=== PATIENT | female | born 1995 | race Caucasian/White ===

== ENCOUNTER 2018-04-14 16:37 | Emergency (ER) | payer BC, SELFPAY ==
[2018-04-14 16:40] VITALS: BP 121/77; PULSE 110; RESP 22; TEMP 36.7; O2SAT 95; BMI 42.5
--- NOTE | 2018-04-14 17:18 | DI.RAD.S_ITS ---
PROCEDURE: XR CHEST 2V INDICATIONS: congested coughing since TECHNIQUE: 2 views of the chest were acquired. COMPARISON: None. FINDINGS: Surgical changes and devices: Vascular coil Lungs and pleura: Lungs are clear. No pleural effusions or pneumothorax. Mediastinum: Mediastinal contours are normal. Heart size is normal. Bones and chest wall: No suspicious bony abnormalities. Soft tissues appear unremarkable. IMPRESSION: No evidence acute pulmonary process. Dictated by: Tima Cristobal M.D. on 04/14/2018 at 18:04 Approved by: Tima Cristobal M.D. on 04/14/2018 at 18:05
--- NOTE | 2018-04-14 17:45 | ED.URI ---
HPI - URI/Sore Throat <DENNY Mcclendon - Last Filed: 04/14/18 22:32> General Chief Complaint: Upper Respiratory Symptoms Stated Complaint: sick,thinks she has a cold Time Seen by Provider: 04/14/18 17:42 Source: patient Mode of arrival: ambulatory Limitations: no limitations History of Present Illness HPI Narrative: 22-year-old female with history of connective tissue disorder and is a nonsmoker here for complaint having cough nasal congestion and sore throat over the past to 3 days. She has not had a fever although she reports to is having chills. She is tolerating p.o. intake. She does report having a history of exercise induced asthma. She has been using her albuterol inhaler to help with her symptoms. She reports that she has a brother that has had cold-like symptoms as well and another brother that is also had strep throat that live in the house with her. Related Data Home Medications Medication Instructions Recorded Confirmed acetaminophen 650 mg PO #0 tab 09/17/15 ibuprofen #0 09/17/15 Previous Rx's Medication Instructions Recorded tramadol 50 mg PO Q6HP PRN #30 tab 09/29/15 cephalexin 500 mg PO BID #20 cap 04/14/18 Allergies Allergy/AdvReac Type Severity Reaction Status Date / Time amoxicillin Allergy Verified 04/14/18 17:19 Review of Systems <DENNY Mcclendon - Last Filed: 04/14/18 22:32> Constitutional Denies chills, Denies fever(s), Denies lethargy and Denies weakness Eyes Denies change in vision, Denies eye discharge, Denies irritation and Denies loss of vision ENT Ears, Nose, Mouth, and Throat: Reports nasal congestion and Denies throat swelling Cardiovascular Denies chest pain, Denies irregular heart rhythm, Denies lightheadedness, Denies palpitations and Denies orthopnea Respiratory Reports cough and Denies wheezing Gastrointestinal Gastrointestinal: Denies abdominal pain, Denies change in bowel habits, Denies diarrhea, Denies nausea and Denies vomiting Genitourinary Denies hematuria, Denies flank pain, Denies urinary incontinence and Denies urinary urgency Musculoskeletal Denies back pain, Denies muscle weakness, Denies numbness and Denies tingling Integumentary/Breasts Denies pruritus, Denies erythema, Denies rash and Denies wounds Neurologic Denies confusion, Denies loss of vision, Denies numbness, Denies tingling and Denies weakness Psychiatric Denies anxiety, Denies confusion, Denies depression, Denies homicidal ideation and Denies suicidal ideation Endocrine Denies palpitations Hematologic/Lymphatic Denies easy bruising Allergic/Immunologic Denies urticaria, Denies throat swelling and Denies wheezing Exam <DENNY Mcclendon - Last Filed: 04/14/18 22:32> Initial Vital Signs Initial Vital Signs: Vital Signs Temperature 98.1 F 04/14/18 16:40 Pulse Rate 110 H 04/14/18 16:40 Respiratory Rate 22 04/14/18 16:40 Blood Pressure 121/77 04/14/18 16:40 Pulse Oximetry 95 04/14/18 16:40 Const General: cooperative and well developed Nutritional Appearance: well nourished Orientation: alert, awake, oriented x3 and not confused HENMT Mouth: oral mucosae normal and moist mucous membranes Throat: posterior oropharynx abnormal (Erythema) Eyes Conjunctivae: conjunctivae normal Sclera: sclerae normal Pupils: PERRL EOM: EOM intact bilaterally Resp Effort & Inspection: normal respiratory effort, able to speak in complete sentences, no respiratory distress and no use of accessory muscles Auscultation: clear to auscultation bilaterally, rales, no rhonchi and wheezes Cardio Rate: regular rate Rhythm: regular rhythm Heart Sounds: no click, no gallops, no murmurs and no rubs Pulses: normal peripheral pulses Skin General: no rashes or lesions noted, No jaundice and No petechiae Neuro General: alert, oriented x3, gait normal and no focal motor deficits Speech: speech normal <Robert Chapman DO - Last Filed: 04/15/18 04:50> Initial Vital Signs Initial Vital Signs: Vital Signs Temperature 98.1 F 04/14/18 16:40 Pulse Rate 110 H 04/14/18 16:40 Respiratory Rate 22 04/14/18 16:40 Blood Pressure 121/77 04/14/18 16:40 Pulse Oximetry 95 04/14/18 16:40 Course <DENNY Mcclendon Last Filed: 04/14/18 22:32> Orders Ordered: Discontinued Medications Albuterol (Ventolin) 2.5 mg INH NOW ONE Stop: 04/14/18 18:18 Last Admin: 04/14/18 18:15 Dose: 2.5 mg Albuterol/Ipratropium (Duoneb) 3 ml INH NOW ONE Stop: 04/14/18 18:04 Last Admin: 04/14/18 18:05 Dose: 3 ml Cephalexin HCl (Keflex) 500 mg PO NOW ONE Stop: 04/14/18 19:41 Last Admin: 04/14/18 19:44 Dose: 500 mg Vital Signs - 8 hr 04/14/18 16:40 04/14/18 18:00 04/14/18 18:18 Temperature 98.1 F Pulse Rate 110 H 105 H 118 H Respiratory Rate 22 18 18 Blood Pressure 121/77 Pulse Oximetry 95 97 98 04/14/18 19:47 Temperature 101.5 F H Pulse Rate 110 H Respiratory Rate 19 Blood Pressure 100/57 L Pulse Oximetry 99 <Robert Chapman DO - Last Filed: 04/15/18 04:50> Orders Ordered: Discontinued Medications Albuterol (Ventolin) 2.5 mg INH NOW ONE Stop: 04/14/18 18:18 Last Admin: 04/14/18 18:15 Dose: 2.5 mg Albuterol/Ipratropium (Duoneb) 3 ml INH NOW ONE Stop: 04/14/18 18:04 Last Admin: 04/14/18 18:05 Dose: 3 ml Cephalexin HCl (Keflex) 500 mg PO NOW ONE Stop: 04/14/18 19:41 Last Admin: 04/14/18 19:44 Dose: 500 mg Vital Signs - 8 hr 04/14/18 16:40 04/14/18 18:00 04/14/18 18:18 Temperature 98.1 F Pulse Rate 110 H 105 H 118 H Respiratory Rate 22 18 18 Blood Pressure 121/77 Pulse Oximetry 95 97 98 04/14/18 19:47 Temperature 101.5 F H Pulse Rate 110 H Respiratory Rate 19 Blood Pressure 100/57 L Pulse Oximetry 99 MDM - URI/Sore Throat <DENNY Mcclendon - Last Filed: 04/14/18 22:32> Lab Data Lab Results 04/14/18 Range/Units 17:15 Influenza A & B (PCR) Negative (Negative) Point of Care Testing Rapid Strep A Positive Imaging Data Chest x-ray: Radiologist's impression: [facility] [address] [place] [address] XRay Report Signed Patient: Valencia Chavez [facility]#: [id number] : 1995Acct:[id number] Age/Sex: 22 / FDate of Service: 04/14/18 Loc: ED Accession Number: [id number] Procedure: XR chest 2V Ordering Provider: Coty Elmore MD PROCEDURE: XR CHEST 2V INDICATIONS: congested coughing since TECHNIQUE: 2 views of the chest were acquired. COMPARISON: None. FINDINGS: Surgical changes and devices: Vascular coil Lungs and pleura: Lungs are clear. No pleural effusions or pneumothorax. Mediastinum: Mediastinal contours are normal. Heart size is normal. Bones and chest wall: No suspicious bony abnormalities. Soft tissues appear unremarkable. IMPRESSION: No evidence acute pulmonary process. Dictated by: Tima Cristobal M.D. on 04/14/2018 at 18:04 Approved by: Tima Cristobal M.D. on 04/14/2018 at 18:05 [facility] Narrative Medical decision making narrative: Chest x-ray was obtained was negative for any acute findings. She was given a DuoNeb treatment and albuterol nebulizer treatment here in the emergency room which helped her with her symptoms and also with wheezing. Influenza swab was obtained was negative. Strep test was obtained and was positive. Due to amoxicillin allergy she is placed on cephalexin. Plenty of fluids and rest. [id number] Tylenol or Motrin as needed for any discomfort. Saline irrigation nasal passages and hot showers to help with any congestion. Follow up with primary care provider. Return emergency room for worsening symptoms. <Robert Chapman DO - Last Filed: 04/15/18 04:50> Lab Data Lab Results 04/14/18 Range/Units 17:15 Influenza A & B (PCR) Negative (Negative) Point of Care Testing Rapid Strep A Positive Discharge Plan Departure Patient Disposition: Home Clinical Impression: Viral upper respiratory infection, Acute streptococcal pharyngitis Discharge Date/Time: 04/14/18 19:48 Interventions: ED Discharge Assessment Last Done: 04/14/18 19:47 Instructions: DI for Strep Throat Activity Restrictions/Additional Instructions: Chest x-ray was obtained was negative for signs of pneumonia. Influenza swab was obtained was also negative. Strep test was positive. Signs and symptoms presents as viral upper respiratory infection also with strep pharyngitis. Plenty of fluids and rest. [id number] Tylenol Motrin as needed for any discomfort. Albuterol inhaler as prescribed to help with any wheezing. Follow up with primary care provider later this week. You are placed on an antibiotic called cephalexin use as directed. For any worsening symptoms return to the emergency room. Replace your toothbrush Prescriptions: New cephalexin 500 mg capsule 500 mg PO BID Qty: 20 RF: 0 No Action ibuprofen 400 MG tablet Qty: 0 RF: 0 acetaminophen 325 MG tablet 650 mg PO Qty: 0 RF: 0 tramadol 50 MG tablet 50 mg PO Q6HP PRNQty: 30 RF: 0 Referrals: [facility] [Provider Group] <Robert Chapman DO - Last Filed: 04/15/18 04:50> Cosign ED Attending Emma Attestation: I was immediately available in the department for consultation. Documentation has been reviewed. I agree with assessment and plan.
[2018-04-14 17:48] LABS: Influenza A and B by PCR Rapid Negative (Negative)
[2018-04-14 18:00] VITALS: PULSE 105; RESP 18; O2SAT 97
[2018-04-14] MEDS: ALBUTEROL/IPRATROPIUM 3 ML AMPUL INH (18:05)
[2018-04-14] MEDS: ALBUTEROL 2.5 MG/3 ML NEB (ADULT) INH (18:15)
[2018-04-14 18:18] VITALS: PULSE 118; RESP 18; O2SAT 98
[2018-04-14] MEDS: cephALEXin 250 MG CAPSULE 500 MG PO (19:44)
[2018-04-14 19:47] VITALS: BP 100/57; PULSE 110; RESP 19; TEMP 38.6; O2SAT 99
== END 2018-04-14 19:48 | disposition home or self-care (01) ==
PROVIDERS: Emergency Medicine; Emergency Provider Nurse Practitioner Family
DX: J02.0 Streptococcal pharyngitis (principal)
CPT/HCPCS: 71046; 87400; 87880; 94640; 99282; 99284; J7613

== ENCOUNTER → 2020-01-09 14:13 | Outpatient (CLI) | payer OTHER, SELFPAY ==
--- NOTE | 2020-01-09 14:16 | DI.US.S_ITS ---
PROCEDURE: US OB <= 14 WEEKS FETUS INDICATIONS: Initial US for Dating and Viability please OUTSIDE/PRIOR DATING DATA: Last menstrual period (LMP): Not available. LMP-based estimated date of delivery (EFREN): Not available . First dating scan (date and location): 01/09/20 . Estimated date of delivery (EFREN) from first dating scan: 07/25/20 . TECHNIQUE: Real-time scanning was performed of the fetus and maternal pelvic organs, with image documentation. Endovaginal scanning was also performed to better visualize the fetus and maternal ovaries. COMPARISON: None. FINDINGS: Embryo: There is a 4.9 cm crown-rump length which correlates with a gestational age of 11 weeks 5 days, +/-5 days. cardiac activity is observed at 112 beats per minute. Maternal cervical length is 3.3 cm Maternal organs: Ovaries appear normal considering gestational status. Limited images through the kidneys demonstrate no hydronephrosis. IMPRESSION: 1st trimester gestation, 11 weeks 5 days gestational age, delivery date projected to be centered on 07/25/20, +/-5 days. Dictated by: Leon Galvan M.D. on 01/09/2020 at 16:15 Approved by: Leon Galvan M.D. on 01/09/2020 at 16:17
== END ==
LOC: US 14:15
PROVIDERS: PCP Family Medicine; Referring Provider Specialist; Visit Provider Specialist
DX: Z34.01 Encounter for supervision of normal first pregnancy, first trimester (principal); Z3A.11 11 weeks gestation of pregnancy
CPT/HCPCS: 76801

== ENCOUNTER → 2020-01-15 17:33 | Outpatient (CLI) | payer OTHER, SELFPAY ==
[2020-01-15 18:18] LABS: Add Manual Diff / Slide Review NO; Basophils Absolute Auto 0 /uL (0-100); Basophils Percent Auto 0.2 % (0-2); Eosinophils Absolute Auto 0 /uL (0-450); Eosinophils Percent Auto 0.4 % (2-4); Hematocrit 37.5 % (36-46); Hemoglobin 12.5 g/dL (12.0-16.0); Lymphocytes Absolute Auto 2600 /uL (1100-4500); Lymphocytes Percent Auto 26.9 % (25-40); Mean Corpuscular HGB Conc 33.2 % (30-36); Mean Corpuscular Hemoglobin 29.2 PG (26-34); Mean Corpuscular Volume 87.7 fL (80-100); Monocytes Absolute Auto 500 /uL (0-900); Monocytes Percent Auto 5.1 % (3-14); Neutrophils Absolute Auto 6500 /uL (1500-7000); Neutrophils Percent Auto 67.4 % (50-75); Platelet Count 225 X10^3/uL (150-400); Red Blood Cell Count 4.28 X10^6/uL (4.0-5.2); Red Cell Distribution Width 13.3 % (11.6-14.8); White Blood Cell Count 9.6 X10^3/uL (4.5-11.0)
[2020-01-15 18:37] LABS: Glucose 93 mg/dL (70-100)
[2020-01-15 18:40] LABS: Hemoglobin A1C% w Est Avg Glu 4.9 % (4.0-6.0)
[2020-01-15 19:08] LABS: Rubella Antibody IgG 0.5 IU/mL (>15)
[2020-01-15 19:11] LABS: Hepatitis B Surface Antigen NEGATIVE s/c (NEGATIVE)
[2020-01-15 19:27] LABS: HIV 1 & 2 Ab/Ag 4th Gen Combo NEGATIVE (NEGATIVE); Hep C Virus Ab w/Reflex Quant NEGATIVE s/c (NEGATIVE)
[2020-01-16 05:16] LABS: RPR Screen Non Reactive (Non Reactive)
[2020-01-16 07:36] LABS: Varicella IgG Antibody <135 index (Immune >165)
== END ==
PROVIDERS: PCP Family Medicine; Referring Provider Specialist; Visit Provider Specialist
DX: Z34.01 Encounter for supervision of normal first pregnancy, first trimester (principal)
CPT/HCPCS: 36415; 80055; 82947; 83036; 86787; 86803; 86850; 86900; 86901; 87389

== ENCOUNTER → 2020-03-12 15:25 | Outpatient (ROUT) | payer OTHER, SELFPAY | PROVIDERS: PCP Family Medicine; Visit Provider Specialist | DX: Z34.01 Encounter for supervision of normal first pregnancy, first trimester (principal) | CPT/HCPCS: 87086 ==

== ENCOUNTER → 2020-05-03 08:56 | Outpatient (CLI) | payer OTHER, MEDICAID, SELFPAY ==
[2020-05-03 11:04] LABS: GTT (PREG) 1 Hour PP 50gm Dose 108 mg/dL (76-139)
[2020-05-03 11:28] LABS: Appearance Urine UA CLOUDY; Bilirubin Urine UA NEGATIVE (NEGATIVE); Color Urine UA YELLOW; Glucose Urine UA TRACE g/dL (Negative); Ketones Urine UA NEGATIVE (NEGATIVE); Leukocyte Esterase Urine UA 1+ (NEGATIVE); Nitrite Urine UA NEGATIVE (Negative); Occult Blood Urine UA NEGATIVE (Negative); Protein Urine UA NEGATIVE (Negative); Specific Gravity Urine UA 1.015 (1.000-1.035); Urobilinogen Urine UA 0.2 E.U./dL (0.2)
[2020-05-03 11:29] LABS: Bacteria Urine None Seen; RBC Urine None Seen (0-5/HPF); pH Urine UA 7.5 (4.5-8.0)
[2020-05-03 11:37] LABS: Amorphous Sediment Urine 3+; Culture Indicated Urine Cult Not Indicated; Squamous Epithelial Cell Urine 5-10 /HPF (0-5/HPF); WBC Urine 1-5/HPF (0-5/HPF)
== END ==
PROVIDERS: PCP Family Medicine; Referring Provider Specialist; Visit Provider Specialist
DX: Z34.02 Encounter for supervision of normal first pregnancy, second trimester; Z3A.25 25 weeks gestation of pregnancy
CPT/HCPCS: 36415; 81003; 81015; 82950; 85014; 85018

== ENCOUNTER → 2020-07-08 15:37 | Outpatient (CLI) | payer OTHER, MEDICAID, SELFPAY ==
[2020-07-09 15:58] LABS: Strep Grp B PCR NEG for Grp B Strep
== END ==
PROVIDERS: PCP Family Medicine; Visit Provider Specialist
DX: Z34.03 Encounter for supervision of normal first pregnancy, third trimester (principal); Z3A.36 36 weeks gestation of pregnancy
CPT/HCPCS: 87653

== ENCOUNTER → 2020-07-29 11:40 | Outpatient (CLI) | payer OTHER, MEDICAID, SELFPAY ==
[2020-07-29 12:24] LABS: COVID19 -Nasal RAPID Negative (Negative)
== END ==
PROVIDERS: PCP Family Medicine; Visit Provider Specialist
DX: Z01.812 Encounter for preprocedural laboratory examination (principal); Z20.822 Contact with and (suspected) exposure to COVID-19
CPT/HCPCS: 87635; C9803

== ENCOUNTER 2020-07-30 05:35 | Inpatient (IN) | payer OTHER, MEDICAID, SELFPAY ==
[2020-07-30] MEDS: LACTATED RINGERS 1,000 ML 100 ML IV ×4 (07:15→17:07)
--- NOTE | 2020-07-30 07:26 | PM.OBHP.1 ---
OB HPI Date/Time Date of admission: 07/30/20 Date Patient Seen: 07/30/20 Time Patient Seen: 07:26 History of Present Condition Chief complaint: C Section : 1 Para: 0 Estimated Date of Delivery: 08/02/20 Estimated Gestational Age (weeks): 39 Narrative: Valencia Chavez is a 24 year old female History of Present care: good care, initiated at week # (11), number of visits (10) and pounds weight gain (-11) Dating criteria: LMP confirmed by 1st trimester US Ultrasounds: normal mid trimester US Obstetrical complications: none Medical complications: other (Alexandre Danlos) Preadmission Labs Blood type: O (+) positive -: Antibody screen: negative, GBS status: negative, HBsAG: negative, HIV: negative and RPR/VDLR: negative -: Chlamydia screen: not detected and Gonorrhea screen: not detected -: Rubella: not immune and Varicella: not immune HCAB: negative Quad screen: Normal 1 hr GTT: 108 Evaluation Evaluation Baseline heart rate: 140 Variability: Moderate (11-25) monitor accelerations: Present Monitor Decelerations: Absent Contraction Frequency (minutes): 8 Uterine Contraction Intensity: Mild Category of Tracing: Reactive Status: Category l PFSH Medical History (Updated 07/15/20 @ 11:37 by Levar Gudino MD) Accident at workplace (~2015) ADHD Allergies Anxiety (~2011) Asthma (~1999) Chicken pox (~2000) Depression (~2011) Alexandre-Danlos syndrome Fractures Headache Hearing loss Irregular menstrual cycle Lactose intolerance Left hand fracture Low muscle tone (~1995) Migraine Obesity Panic attacks (~2011) Toe fracture, left Surgical History (Updated 02/12/20 @ 21:38 by Leydi Cole) Anesthesia H/O wisdom tooth extraction (~08/2019) Hx of heart surgery (~12/1995) S/P biopsy S/P ear surgery S/P tonsillectomy Family History (Updated 02/12/20 @ 21:45 by Leydi Cole) Mother Diabetes mellitus Hyperlipidemia Asthma Father Diabetes mellitus Sleep apnea History of heart disease Hypertension Hyperlipidemia Grandmother Prediabetes Hypertension Grandfather Alcoholic Hypertension Grandmother Status post tracheostomy Cancer Diabetes mellitus History of heart disease Hyperlipidemia Mental health problem Depression Grandfather Accident Diabetes mellitus History of heart disease Hyperlipidemia Family/Other Cancer Sister Alexandre-Danlos syndrome Brother Alexandre-Danlos syndrome Sister Social anxiety disorder Alexandre-Danlos syndrome Sister Alexandre-Danlos syndrome Depression Family/Other Status post tracheostomy Brother Overweight Social History marital status: unmarried,single household members: family (Lives with Parent's and Sibling's) lives independently: No pets and animals: No education level: high school occupational status: employed (Works at [email or web address] in ) current occupational exposures/hazards: Yes special allyn needs: No Smoking Status: Former smoker (Quit in November 2019) Tobacco: How many years used: 2 second hand exposure: No alcohol intake: former (pre- : rare) substance use type: does not use Meds Home Medications and Allergies Home Medications Medication Instructions Recorded Confirmed Type albuterol sulfate 90 mcg/actuation 2 puff INHALATION Q6H PRN 01/14/20 07/22/20 History aerosol inhaler prenat.vits,gonzalo,mkn-ikbv-hkbtq 1 tab PO DAILY 01/14/20 07/22/20 History Allergies Allergy/AdvReac Type Severity Reaction Status Date / Time amoxicillin Allergy Mild Hives to Verified 05/27/20 10:04 arms : mild lactose AdvReac Mild GI Verified 05/27/20 10:04 discomfort Review of Systems Review of Systems Narrative: Patient denies headaches, scotomata, epigastric pain. No leakage of fluid. Good movement. No regular contractions ROS: Yes All systems reviewed with the patient and are negative except as otherwise documented Exam Vital Signs (past 8 hours): Blood pressure 107/58, pulse of 86, temperature 96.5? Narrative Exam Narrative: HEENT exam within normal limits. Lungs are clear to auscultation percussion. Heart is regular rate and rhythm no S3-S4 murmurs. Abdomen is gravid. Fetus is vertex. Extremities without edema and nontender. Assessment and Plan Assessment and Plan Assessment and Plan narrative: 39 and half week gestation patient admitted for primary section due to concerns from her Alexandre Danlos syndrome and pushing.
[2020-07-30 07:53] LABS: Add Manual Diff / Slide Review NO; Basophils Absolute Auto 100 /uL (0-100); Basophils Percent Auto 0.5 % (0-2); Eosinophils Absolute Auto 0 /uL (0-450); Eosinophils Percent Auto 0.2 % (2-4); Hematocrit 34.5 % (36-46); Hemoglobin 11.4 g/dL (12.0-16.0); Lymphocytes Absolute Auto 3300 /uL (1100-4500); Lymphocytes Percent Auto 28.6 % (25-40); Mean Corpuscular Hemoglobin 28.2 PG (26-34); Mean Corpuscular Volume 85.4 fL (80-100); Monocytes Absolute Auto 700 /uL (0-900); Monocytes Percent Auto 6.4 % (3-14); Neutrophils Absolute Auto 7400 /uL (1500-7000); Neutrophils Percent Auto 64.3 % (50-75); Platelet Count 235 X10^3/uL (150-400); Red Blood Cell Count 4.04 X10^6/uL (4.0-5.2); Red Cell Distribution Width 14.6 % (11.6-14.8); White Blood Cell Count 11.5 X10^3/uL (4.5-11.0)
[2020-07-30] MEDS: CEFAZOLIN 1 GM VIAL 2 GM IV (08:00)
--- NOTE | 2020-07-30 08:28 | SUR.OPER ---
Supine on Padded OR bed, head on pillow, safety belt at thigh, arms secured on padded arm boards at <90 degrees abduction. Bump under right buttock. Legs uncrossed with pillow under knees, gel pad to heels, tape over blanket to lower legs.
--- NOTE | 2020-07-30 08:34 | SUR.OPER ---
live male born at 0819
[2020-07-30 09:06] VITALS: BP 113/45; PULSE 83; RESP 16; TEMP 36.4; O2SAT 98
[2020-07-30 09:10] VITALS: BP 100/50; PULSE 83; RESP 9; O2SAT 100
--- NOTE | 2020-07-30 09:14 | P.OP_ITS ---
Operative Date/Time/Diagnoses Date of procedure: 07/30/20 Time of procedure: 09:14 Pre-op diagnosis: 39 weeks gestation with Alexandre Danlos syndrome for primary section Post-op diagnosis: same Procedure & Clinicians Procedure: primary low-transverse section Same procedure as scheduled: Yes Indications: term with Alexandre Danlos Syndrome Surgeon: Pippa Anne Enrollment Representative: Pina Lomeli Anesthesia Type: Spinal Operative Notes Closure Type: primary Specimen(s): cord blood Intraoperative meds administered: Ketorolac and Pitocin Applied: Catheter ( Mishra) Estimated Blood Loss (mL): 500 Blood products transfused: none Complications: none Baby 1: Infant Gender: Male Presentation: vertex Position: Right Occiput Transverse Placental Delivery Description: Expressed Cord Vessel Description: 3 Vessels score (1 min): 9 score (5 min): 9 weight: 8 lb 5 oz Narrative: The patient was brought to the operating room where she underwent a spinal for anesthesia. She was placed in a supine position with a left lateral tilt. A Mishra catheter was placed. Pulsatile stockings were placed and functional throughout the case. 2 g of Ancef were given IV prior to the incision. Warmi ng was in place. The patient was prepped and draped in usual sterile fashion. A low transverse incision was made with a scalpel and the incision was carried down to the fascial layer which was incised transversely with scissors. The health care legal assistant did her side of the incision. The midline attachments are superiorly and inferiorly. Some bleeding was controlled Bovie. The rectus muscles were in the midline and the peritoneal incision was made with no damage to internal structures. The peritoneum was incised and superiorly and inferiorly. The incision was stretched with the surgeon and health care legal assistant placing traction. Bladder blade was placed and a bladder flap was developed and the bladder held away from the lower uterine segment. An incision was made in the uterus with the scalpel and the incision was extended with stretching. The head was elevated out of the abdomen and with fundal pressure by the health care legal assistant the baby was delivered. The was bulb suctioned for clear fluid and handed off to the warmer. Cord blood was collected. The placenta delivered spontaneously with traction. The uterus was cleaned with clean laps. The uterine incision was closed in 2 layers of 0 chromic suture the first a running locking layer the second an imbricating layer. The health care legal assistant was helping to expose the incision. The bladder peritoneum was repaired with 2-0 Vicryl suture. The gutters were cleaned of any remaining fluids and ovaries and tubes were observed to be normal. Adequate hemostasis was noted. The perineum was closed with 2-0 Vicryl suture. The fascia layer was closed with 0 Vicryl suture with 2 stitches. The health care legal assistant repairing half the incision with helping to retract and expose the incision for the other half. The incision was irrigated and adequate hemostasis noted. The incision was closed with interrupted 3-0 Vicryl sutures and then a subcuticular stitch of 4-0 Vicryl suture. Steri- Strips were placed. The uterus was massaged to remove any clots. The patient went to recovery room in good condition. Counts of instruments and sponges were correct. Dr. Lomeli was present throughout the case to assist with retraction, fundal pressure to deliver the , and suturing half the fascia. Post-operative Condition: stable Disposition: other ( Center) Aftercare: routine postop
[2020-07-30 09:15] VITALS: BP 109/53; PULSE 73; RESP 7; O2SAT 100
[2020-07-30 09:20] VITALS: BP 107/49; PULSE 76; RESP 8; O2SAT 100
[2020-07-30 09:25] VITALS: BP 105/41; PULSE 75; RESP 10; O2SAT 100
[2020-07-30 09:55] VITALS: BP 107/58
[2020-07-30] MEDS: ONDANSETRON 4 MG/2 ML INJ IV (12:15)
[2020-07-30] MEDS: diphenhydrAMINE 50 MG/ML VIAL 25 MG IV ×2 (13:03→18:44)
[2020-07-30] MEDS: BUTORPHANOL 1 MG/ML VIAL 0.5 MG IV ×2 (14:03→21:07)
[2020-07-30] MEDS: KETOROLAC 30 MG/ML VIAL IV ×2 (14:49→21:07)
[2020-07-31] MEDS: IBUPROFEN 600 MG TABLET PO ×3 (04:35→20:45)
[2020-07-31] MEDS: BUTORPHANOL 1 MG/ML VIAL 0.5 MG IV (04:41)
[2020-07-31 06:28] LABS: Add Manual Diff / Slide Review NO; Basophils Absolute Auto 0 /uL (0-100); Basophils Percent Auto 0.5 % (0-2); Eosinophils Absolute Auto 0 /uL (0-450); Eosinophils Percent Auto 0.3 % (2-4); Hematocrit 26.9 % (36-46); Hemoglobin 9.1 g/dL (12.0-16.0); Lymphocytes Absolute Auto 2600 /uL (1100-4500); Lymphocytes Percent Auto 25.3 % (25-40); Mean Corpuscular HGB Conc 33.7 % (30-36); Mean Corpuscular Hemoglobin 28.7 PG (26-34); Mean Corpuscular Volume 85.1 fL (80-100); Monocytes Absolute Auto 600 /uL (0-900); Monocytes Percent Auto 6.4 % (3-14); Neutrophils Absolute Auto 6900 /uL (1500-7000); Neutrophils Percent Auto 67.5 % (50-75); Platelet Count 183 X10^3/uL (150-400); Red Blood Cell Count 3.16 X10^6/uL (4.0-5.2); Red Cell Distribution Width 14.6 % (11.6-14.8); White Blood Cell Count 10.2 X10^3/uL (4.5-11.0)
--- NOTE | 2020-07-31 08:45 | PM.OBPN.1 ---
Subjective - OB Subjective Patient comments: incisional pain baby status: doing well and nursing well [place] feeding status: exclusively breast feeding Date Patient Seen: 07/31/20 Time Patient Seen: 08:45 Interval history: Patient is postoperative day 1 Primary section. Patient has been able to urinate since her catheter was removed. Her pain is under control except with movement. She is breast-feeding without difficulty. She denies headaches, scotomata, epigastric pain. She has no nausea and is eating well. Exam Vital Signs (past 8 hours): Blood pressure 102/56, pulse of 82, temperature 98.2? Oxygen Delivery Method Room Air Narrative Exam Narrative: Abdomen is soft, nontender. Uterus is firm, at U, appropriately tender. Dressing is clean, dry, intact. Mild lochia. Extremities without edema and nontender. Objective Labs Result Diagrams: 07/31/20 06:19 Labs: Laboratory Results - last 24 hr 07/31/20 06:19 WBC 10.2 RBC 3.16 L Hgb 9.1 L Hct 26.9 L MCV 85.1 MCH 28.7 MCHC 33.7 RDW 14.6 Plt Count 183 Neut % (Auto) 67.5 Lymph % (Auto) 25.3 [place] % (Auto) 6.4 Eos % (Auto) 0.3 L Baso % (Auto) 0.5 Neut # (Auto) 6900 Lymph # (Auto) 2600 [place] # (Auto) 600 Eos # (Auto) 0 Baso # (Auto) 0 Assessment & Plan Assessment and Plan (1) Acute blood loss anemia: Status: Acute (2) Delivery by section: Status: Acute Plan day: 1 plan OB: routine postop care Time Spent With Patient Time: Total time spent is greater than 50% in coordination of care (as documented) at patient's floor/unit and/or counseling patient: Time with patient: less than 15 minutes
[2020-07-31] MEDS: ACETAMINOPHEN 325 MG TABLET 650 MG PO (09:43)
[2020-07-31] MEDS: DOCUSATE 250 MG CAPSULE PO (09:43)
[2020-07-31] MEDS: OXYCODONE IR 5 MG TABLET PO ×2 (14:52→20:45)
[2020-07-31] MEDS: FERROUS SULFATE 325 MG TABLET PO (16:51)
[2020-07-31] MEDS: LANOLIN OINT 7 GM 1 APPLIC TOP (16:52)
[2020-08-01] MEDS: IBUPROFEN 600 MG TABLET PO ×2 (02:52→13:58)
[2020-08-01] MEDS: OXYCODONE IR 5 MG TABLET PO (02:52)
--- NOTE | 2020-08-01 09:15 | P.DS_ITS ---
Discharge Providers Provider Date of admission: 07/30/20 05:35 Discharge Date: 08/01/20 Primary care physician: Paulette Hunter DO Consults: 07/30/20 09:51 Consult to Communications Analyst Routine Comment: Discharge provider: Pippa Anne MD Summary Hospital Course Date Patient Seen: 08/01/20 Time Patient Seen: 09:15 Diagnoses: 39 week gestation with Alexandre-Danlos Hospital Course: Patient underwent a primary low-transverse section on 07/30/2020 for 39 week gestation with Alexandre-Danlos syndrome. Patient is urinating and ambulating well. She denies headaches, scotomata, epigastric pain. She is tolerating regular diet. She has incisional pain only. Patient is having some issues with . Peripartum Data Delivery Method: Section Procedures: Primary low-transverse section complications: none [place] 1: Gender: Male Disposition of : home Discharge Diagnosis (1) Acute blood loss anemia: Status: Acute (2) Delivery by section: Status: Acute Status at Discharge Cognitive/behavioral status at discharge: oriented Functional status at discharge: independent ambulation Overall status at discharge: patient is progressing back to baseline Time Spent with Patient Time attestation: Total time spent providing and/or coordinating discharge services: Time spent: Less than 30 minutes Objective Labs Result Diagrams: 07/31/20 06:19 Exam Vital Signs (past 8 hours): blood pressure 96/57, pulse of 83, temperature 97.8? Oxygen Delivery Method Room Air Narrative Exam Narrative: Abdomen is soft, nontender. Uterus is firm, at U, appropriately tender. Dressing is clean, dry, intact. Mild lochia. Extremities without edema and nontender. Patient is Rh positive, rubella immune, received the Tdap in the 3rd trimester. Discharge Plan Discharge Plan Patient Disposition: Home Discharge orders & Medications Prescriptions: New docusate sodium 250 mg Capsule 250 mg PO DAILY Qty: 20 RF: 0 ferrous sulfate 325 mg (65 mg iron) Tablet 325 mg PO BIDWM Qty: 30 RF: 0 ibuprofen 600 mg Tablet 600 mg PO Q6H PRN (Reason: Fever/Mild Pain (1-3)) Qty: 30 RF: 0 oxycodone-acetaminophen 5-325 mg tablet 1 tab PO Q4-6H PRN (Reason: pain) Qty: 40 RF: 0 Continued prenat.vits,gonzalo,vqx-qkbn-hknmx Tablet 1 tab PO DAILY RF: 0 albuterol sulfate 90 mcg/actuation HFA aerosol inhaler 2 puff inhalation Q6H PRN (Reason: Shortness Of Breath Or Wheezing) RF: 0 Follow up/Referrals: Pippa Anne MD [Physician] - ( Patient has follow-up appointment scheduled on 08/06 at 3:30 p.m. for Aquacel removal) Paulette Hunter DO [Primary Care Provider] - Diet/Activity/Treatments Diet: Regular Activity: nothing in vagina or lifting over 20 lb for 6 weeks Skin/Wound/Dressing Care Report to your healthcare provider any signs of infection, such as:: chills, fever and increased pain Dressing: leave dressing in place until postop appointment Discharge Data Primary Care Provider: Paulette Hunter
[2020-08-01] MEDS: DOCUSATE 250 MG CAPSULE PO (13:57)
[2020-08-01] MEDS: ACETAMINOPHEN 325 MG TABLET 650 MG PO (13:58)
[2020-08-01] MEDS: FERROUS SULFATE 325 MG TABLET PO (13:58)
[2020-08-02 12:15] VITALS: BP 107/58; PULSE 75; RESP 10; TEMP 36.4
== END 2020-08-02 12:15 | disposition home or self-care (01) | DRG 540 ==
PROVIDERS: Admitting Provider Specialist; PCP Family Medicine; Referring Provider Specialist; Visit Provider Specialist
PROC: 10D00Z1 Extraction of Products of Conception, Low, Open Approach (ICD-10-PCS; CPT 59514; principal; 2020-07-30 07:45)
DX: O99.891 Other specified diseases and conditions complicating pregnancy (principal); Q79.60 Ehlers-Danlos syndrome, unspecified; Z3A.39 39 weeks gestation of pregnancy; Z37.0 Single live birth; O90.81 Anemia of the puerperium; D62 Acute posthemorrhagic anemia
CPT/HCPCS: 36415; 59050; 59514; 85025; 86850; 86900; 86901; J0595; J0690; J1200; J1885; J2274; J2405; J2590

== ENCOUNTER → 2022-04-23 14:37 | Outpatient (CLI) | payer OTHER, MEDICAID, SELFPAY ==
[2022-04-23 15:27] LABS: Influenza A - CEPHEID Flu A NEGATIVE (NEGATIVE); Influenza B - CEPHEID Flu B NEGATIVE (NEGATIVE); Respiratory Syncytial Virus Negative (Negative)
[2022-04-23 15:29] LABS: COVID-19 CEPHEID 4-PLEX PCR Negative (Negative)
== END ==
PROVIDERS: PCP Family Medicine; Visit Provider Registered Nurse
DX: R05.9 Cough, unspecified (principal); Z20.822 Contact with and (suspected) exposure to COVID-19
CPT/HCPCS: 0241U

== ENCOUNTER → 2023-07-19 15:23 | Outpatient (CLI) | payer OTHER, SELFPAY ==
--- NOTE | 2023-07-19 15:26 | DI.RAD.S_ITS ---
PROCEDURE: XR KNEE RT 3V INDICATIONS: Right knee pain TECHNIQUE: 3 views of the knee were acquired. COMPARISON: None. FINDINGS: Bones: No fractures or dislocations. No suspicious bony lesions. Soft tissues: No joint effusion. No suspicious soft tissue calcifications. IMPRESSION: No acute bony abnormality or significant effusion. If pain persists, followup imaging in 5-7 days is recommended to exclude occult fracture. Dictated by: Luz Coates M.D. on 07/19/2023 at 17:42 Approved by: Luz Coates M.D. on 07/19/2023 at 17:42
== END ==
PROVIDERS: PCP Family Medicine; Referring Provider Nurse Practitioner Family; Visit Provider Nurse Practitioner Family
DX: S86.911A Strain of unspecified muscle(s) and tendon(s) at lower leg level, right leg, initial encounter (principal)
CPT/HCPCS: 73562

== ENCOUNTER → 2023-08-18 08:08 | Outpatient (CLI) | payer OTHER, MEDICAID, SELFPAY ==
[2023-08-18 09:07] LABS: Influenza A - CEPHEID Flu A NEGATIVE (NEGATIVE); Influenza B - CEPHEID Flu B NEGATIVE (NEGATIVE); Respiratory Syncytial Virus Negative (Negative)
[2023-08-18 09:10] LABS: COVID-19 CEPHEID 4-PLEX PCR Negative (Negative)
== END ==
PROVIDERS: PCP Family Medicine; Visit Provider Nurse Practitioner Family
DX: J02.9 Acute pharyngitis, unspecified (principal); R05.1 Acute cough
CPT/HCPCS: 87635; 87400 ×2; 87420; 0241U; 87070

== ENCOUNTER 2023-09-15 09:19 | Emergency (ER) | payer SELFPAY ==
[2023-09-15] VITALS (7 sets, daily range): BP systolic 114–137; BP diastolic 56–70; PULSE 80–92; RESP 17–20; TEMP 36.9; O2SAT 96–98; BMI 45.3
--- NOTE | 2023-09-15 09:35 | DI.RAD.S_ITS ---
PROCEDURE: XR CHEST 1V INDICATIONS: eval for PNA TECHNIQUE: One view of the chest was acquired. COMPARISON: None. FINDINGS: Surgical changes and devices: None. Lungs and pleura: Lungs are clear. No pleural effusions or pneumothorax. Mediastinum: Mediastinal contours appear normal. Heart size is normal. Bones and chest wall: No suspicious bony lesions. Overlying soft tissues appear unremarkable. IMPRESSION: No acute cardiopulmonary abnormality is seen. Dictated by: Valencia Galdamez M.D. on 09/15/2023 at 9:42 Approved by: Valencia Galdamez M.D. on 09/15/2023 at 9:44
--- NOTE | 2023-09-15 09:36 | ED.GENADULT ---
HPI - General Adult General Chief complaint: Upper Respiratory Symptoms Stated complaint: Hard time breathing Time Seen by Provider: 09/15/23 09:32 Source: patient Mode of arrival: Ambulatory History of Present Illness HPI narrative: 27-year-old female with a history of asthma who only uses albuterol inhalers at home who is here for evaluation of 4 days of cough and shortness of breath. No fevers. Has a productive cough. No chest pain except with the coughing. Has tried her inhalers at home without improvement of symptoms. She was not have a spacer. Related Data Previous Rx's Medication Instructions Recorded escitalopram oxalate 20 mg tablet 20 mg PO DAILY #30 tabs 06/04/23 albuterol sulfate 90 mcg/actuation 2 puff inhalation Q6H PRN 07/11/23 aerosol inhaler shortness of breath or wheezing #8.5 grams benzonatate 100 mg capsule 100 mg PO BID PRN cough #14 caps 09/15/23 Allergies Allergy/AdvReac Type Severity Reaction Status Date / Time amoxicillin Allergy Mild Hives to Verified 09/15/23 09:35 arms : mild lactose AdvReac Mild GI Verified 09/15/23 09:35 discomfort Review of Systems Constitutional Constitutional: Reports system reviewed and no additional complaints, except as documented Cardiovascular Cardiovascular: Reports system reviewed and no additional complaints, except as documented Respiratory Respiratory: Reports system reviewed and no additional complaints, except as documented Integumentary/Breasts Skin/Breast: Reports system reviewed and no additional complaints, except as documented Neurologic Neurologic: Reports system reviewed and no additional complaints, except as documented Hematologic/Lymphatic On Anticoagulants: No Patient History Medical History Acute blood loss anemia (~07/30/20) Scalp lump Lumbar contusion Contusion, back Anemia Eczema Allergies Headache Low muscle tone (~1995) Fractures Chicken pox (~2000) Hearing loss Irregular menstrual cycle Obesity ADHD Lactose intolerance Asthma (~1999) Migraine Panic attacks (~2011) Toe fracture, left Left hand fracture Accident at workplace (~2015) Depression (~2011) Anxiety (~2011) Alexandre-Danlos syndrome Surgical History (Updated 06/04/23 @ 14:07 by Tiana Zhang DO) Delivery by section (~07/30/20) History of section (~06/25/21) Anesthesia H/O wisdom tooth extraction (~08/2019) S/P tonsillectomy S/P ear surgery S/P biopsy Hx of heart surgery (~12/1995) Family History (Updated 03/01/23 @ 20:30 by Leydi Cole) Mother Diabetes mellitus Hyperlipidemia Asthma Father Diabetes mellitus Sleep apnea History of heart disease Hypertension Hyperlipidemia Grandmother Prediabetes Hypertension Grandfather Alcoholic Hypertension Grandmother Status post tracheostomy Cancer Diabetes mellitus History of heart disease Hyperlipidemia Mental health problem Depression Grandfather Accident Diabetes mellitus History of heart disease Hyperlipidemia Bladder cancer Family/Other Cancer Sister Alexandre-Danlos syndrome Brother Alexandre-Danlos syndrome Sister Social anxiety disorder Alexandre-Danlos syndrome Sister Alexandre-Danlos syndrome Depression Family/Other Status post tracheostomy Brother Overweight Family/Other Asthma Allergies Eczema Testicular disorder Social History marital status: unmarried,single household members: family (Lives with Parent's and Sibling's) lives independently: No pets and animals: No education level: high school occupational status: employed (Works at [employer] ) current occupational exposures/hazards: Yes special allyn needs: No Smoking Status: Never smoker Tobacco: How many years used: 2 second hand exposure: No alcohol intake: former (pre- : rare) substance use type: does not use Smoking Status: Never smoker alcohol intake frequency: other Substance Use Type: does not use Exam Initial Vital Signs Initial Vital Signs: Vital Signs Pulse Rate 80 09/15/23 09:28 Blood Pressure 137/70 09/15/23 09:28 Pulse Oximetry 98 09/15/23 09:28 Const General: cooperative and comfortable HENMT Head: normal to inspection and normocephalic Resp Effort & Inspection: cough, not labored and tachypneic Auscultation: wheezes Cardio Rate: regular rate Rhythm: regular rhythm GI Inspection: normal to inspection Skin General: no rashes or lesions noted Neuro General: patient alert and patient awake Extrem General: capillary refill normal Course Orders Ordered: ED Orders 09/15/23 09:32 RT Consult Eval and Treat Now 09/15/23 09:35 XR chest 1V Stat Discontinued Medications Albuterol (Albuterol 2.5 Mg/3 Ml Neb (Adult)) 2.5 mg INH NOW ONE Stop: 08/10/24 09:33 Last Admin: 09/15/23 09:43 Dose: Not Given Documented By: LANETTE Albuterol/Ipratropium (Albuterol/Ipratropium 3 Ml Ampul) 3 ml INH NOW ONE Stop: 09/15/23 09:36 Last Admin: 09/15/23 09:47 Dose: 3 ml Documented By: RICARDO Benzonatate (Benzonatate 100 Mg Capsule) 100 mg PO NOW ONE Stop: 09/15/23 10:38 Last Admin: 09/15/23 11:00 Dose: 100 mg Documented By: GRICELDA Vital Signs Vital signs: Vital Signs - 8 hr 09/15/23 09:28 09/15/23 09:28 09/15/23 09:30 Temperature Pulse Rate 80 92 H Respiratory Rate Blood Pressure 137/70 Pulse Oximetry 98 97 Oxygen Delivery Method 09/15/23 09:31 09/15/23 09:48 09/15/23 10:00 Temperature 98.4 F Pulse Rate 90 82 92 H Respiratory Rate 17 20 Blood Pressure 137/70 Pulse Oximetry 98 98 96 Oxygen Delivery Method Room Air Room Air 09/15/23 10:00 Temperature Pulse Rate Respiratory Rate Blood Pressure 118/60 Pulse Oximetry Oxygen Delivery Method Medical Decision Making Imaging Data Chest x-ray: Radiologist's Impression: PROCEDURE: XR CHEST 1V INDICATIONS: eval for PNA TECHNIQUE: One view of the chest was acquired. COMPARISON: None. FINDINGS: Surgical changes and devices: None. Lungs and pleura: Lungs are clear. No pleural effusions or pneumothorax. Mediastinum: Mediastinal contours appear normal. Heart size is normal. Bones and chest wall: No suspicious bony lesions. Overlying soft tissues appear unremarkable. IMPRESSION: No acute cardiopulmonary abnormality is seen. MDM Narrative Medical decision making narrative: Chest x-ray shows no acute abnormalities. After the nebulizer treatment she is still having the cough but she felt much better. Lungs were clear. Afebrile. Low suspicion for pneumonia. Suspect upper respiratory infection in the setting of asthma. She was given a Tessalon. After period of observation she stated that she was feeling much better and was okay for discharge home. Will hold on any antibiotics. She was given a spacer that she could use with her albuterol inhaler. She was given return precautions. She expressed understanding and agreement. Discharge Plan Departure Patient Disposition: Home Clinical Impression: Asthma, Upper respiratory infection Instructions: Asthma -- Adult Activity Restrictions/Additional Instructions: Use the albuterol inhaler with a spacer as needed. The Tessalon Perles/benzoate are for your use as needed for the cough. You can try other [id number] cough and cold preparations. Return to the emergency department for new or worsening symptoms. Prescriptions: New benzonatate 100 mg capsule 100 mg PO BID PRN (Reason: cough) Qty: 14 0RF No Action albuterol sulfate 90 mcg/actuation HFA aerosol inhaler 2 puff inhalation Q6H PRN (Reason: shortness of breath or wheezing) Qty: 8.5 0RF escitalopram oxalate 20 mg tablet 20 mg PO DAILY Qty: 30 3RF Referrals: Tiana Zhang DO [Primary Care Provider] - Stand Alone Forms: Patient Portal/API
[2023-09-15] MEDS: ALBUTEROL/IPRATROPIUM 3 ML AMPUL INH (09:47)
[2023-09-15] MEDS: BENZONATATE 100 MG CAPSULE PO (11:00)
--- NOTE | 2023-09-15 11:30 | PC.NURSE ---
Expiratory wheeze and work of breathing has decreased after nebulizer treatment.
== END 2023-09-15 11:32 | disposition home or self-care (01) ==
PROVIDERS: Emergency Provider Emergency Medicine; PCP Family Medicine
DX: J06.9 Acute upper respiratory infection, unspecified (principal); J45.909 Unspecified asthma, uncomplicated
CPT/HCPCS: 71045; 94640; 99283